=== PATIENT | female | born 1965 | race Caucasian/White ===

== ENCOUNTER 2020-10-12 09:56 | Observation (INO) | payer SELFPAY ==
--- NOTE | 2020-10-12 10:09 | EKG REPORT ---
SEVERITY:- NORMAL ECG - SINUS RHYTHM : Confirmed by: Slim Guzman MD 12-Oct-2020 10:08:55
--- NOTE | 2020-10-12 10:38 | ER Document Report ---
ED Medical Screen (RME) - General Chief Complaint: Chest Pain Stated Complaint: CHEST PAIN,LEFT ARM/SHOULDER PAIN Time Seen by Provider: 10/12/20 10:30 Notes: Patient presents complaining of chest pain off and on for the past 2 days. Patient describes it as an ache at this time that will radiate to the left side of her neck. Patient does report some nausea. Patient denies any cough or cold symptoms. Patient denies any vomiting. Patient has a history of CAD with a stent placed. I have greeted and performed a rapid initial assessment of this patient. A comprehensive ED assessment and evaluation of the patient, analysis of test resu lts and completion of the medical decision making process will be conducted by additional ED providers. Physical Exam - Vital signs Vitals: Temp Pulse Resp BP Pulse Ox 97.7 F 70 20 136/92 H 95 10/12/20 10:04 10/12/20 10:04 10/12/20 10:04 10/12/20 10:04 10/12/20 10:04 - Respiratory Respiratory status: No respiratory distress Chest status: Tender - Cardiovascular Rhythm: Regular Heart sounds: S1 appreciated, S2 appreciated Course - Vital Signs Vital signs: Temp Pulse Resp BP Pulse Ox 97.7 F 70 20 136/92 H 95 10/12/20 10:04 10/12/20 10:04 10/12/20 10:04 10/12/20 10:04 10/12/20 10:04
--- NOTE | 2020-10-12 11:22 | RADIOLOGY REPORT (SQ) ---
EXAM DESCRIPTION: CHEST SINGLE VIEW IMAGES COMPLETED DATE/TIME: 10/12/2020 11:02 am REASON FOR STUDY: cp COMPARISON: None. EXAM PARAMETERS: NUMBER OF VIEWS: One view. TECHNIQUE: Single frontal radiographic view of the chest acquired. RADIATION DOSE: NA LIMITATIONS: None. FINDINGS: LUNGS AND PLEURA: No opacities, masses or pneumothorax. No pleural effusion. MEDIASTINUM AND HILAR STRUCTURES: No masses. Contour normal. HEART AND VASCULAR STRUCTURES: Heart normal in size. Normal vasculature. BONES: No acute findings. HARDWARE: None in the chest. OTHER: No other significant finding. IMPRESSION: NO ACUTE RADIOGRAPHIC FINDING IN THE CHEST. TECHNICAL DOCUMENTATION: JOB ID: [id number] 2010 [employer]- All Rights Reserved Reading location - IP/workstation name: [email or web address]
[2020-10-12 11:23] LABS: ABSOLUTE EOSINOPHILS # (AUTO) 0.1 10^3/uL (0.0-0.6); ABSOLUTE MONOCYTES (AUTO) 0.5 10^3/uL (0.1-1.4); ABSOLUTE NEUT (AUTO) 3.1 10^3/uL (1.7-8.2); BASOPHILS % (AUTO) 0.8 % (0-2); EOSINOPHILS % (AUTO) 2.1 % (0-6); HEMATOCRIT 40.7 % (36.0-47.0); MEAN CORPUSCULAR HGB CONC 34.4 g/dL (32.0-36.0); MEAN CORPUSCULAR VOLUME 81 fl (80-97); PLATELET COUNT 260 10^3/uL (150-450); RED BLOOD COUNT 5.01 10^6/uL (3.72-5.28); RED CELL DISTRIBUTION WIDTH 13.9 % (11.5-14.0); SEGMENTED NEUTROPHILS % (AUTO) 54.1 % (42-78); TOTAL CELLS COUNTED % (AUTO) 100 %; WHITE BLOOD COUNT 5.8 10^3/uL (4.0-10.5)
[2020-10-12 11:41] LABS: ALBUMIN 4.3 g/dL (3.5-5.0); ALKALINE PHOSPHATASE 91 U/L (38-126); ANION GAP 8 (5-19); ASPARTATE AMINO TRANSFERASE 38 U/L (14-36); BILIRUBIN,TOTAL 0.7 mg/dL (0.2-1.3); BLOOD UREA NITROGEN 21 mg/dL (7-20); CALCIUM 9.4 mg/dL (8.4-10.2); CARBON DIOXIDE 27 mmol/L (22-30); CHLORIDE 104 mmol/L (98-107); GLUCOSE 114 mg/dL (75-110); POTASSIUM 4.7 mmol/L (3.6-5.0); TOTAL PROTEIN 7.5 g/dL (6.3-8.2)
--- NOTE | 2020-10-12 11:45 | ER Document Report ---
ED General - General Chief Complaint: Chest Pain Stated Complaint: CHEST PAIN,LEFT ARM/SHOULDER PAIN Time Seen by Provider: 10/12/20 10:30 Notes: 54-year-old female with hypertension hyperlipidemia obesity and prior stenting presents with chest pain. Described as left-sided like someone squeezing, worse when lying on her left side. Started 3 days ago had an episode of about an hour's worth went away alone without any medication. Since then she had intermittent pain as well without shortness of breath diaphoresis or radiation. Right now just feels like someone is putting her finger on her chest. She has had a lot of intermittent nausea in the last few days as well which both accompanies and does not accompany the chest pressure. It does remind her of prior anginal type chest pain but is not exactly the same. Her stent was in [facility] now she lives in [place] and has no doctor or purification operator locally. Denies cough loss of taste or smell fever chills pleuritic component ripping or tearing or radiation to back. Past Medical History - General Information source: Patient - Social History Smoking Status: Unknown if Ever Smoked Family History: None Review of Systems - Review of Systems Notes: REVIEW OF SYSTEMS GEN: Denies fever, chills, weight loss ENT: Denies sore throat, nasal discharge, ear pain EYES: Denies blurry vision, eye pain, discharge CV: Pain RESP: Denies cough, shortness of breath, wheezing GI: Nausea MSK: Denies joint pain/swelling, edema, SKIN: Denies rash, skin lesions LYMPH: Denies swollen glands/lymph nodes NEURO: Denies headache, focal weakness or numbness, dizziness PSYCH: Denies depression, suicidal or homicidal ideation PHYSICAL EXAMINATION General: This, no acute distress, well-nourished Head: Atraumatic, normocephalic ENT: Mouth normal, oropharynx moist, no exudates or tonsillar enlargement Eyes: Conjunctiva normal, pupils equal, lids normal Neck: No JVD, supple, no guarding CVS: Normal rate, regular rhythm, no murmurs Resp: No resp distress, equal and normal breath sounds bilaterally GI: Nondistended, soft, no tenderness to palpation, no rebound or guarding Ext: No deformities, no edema, normal range of motion in upper and lower ext Back: No CVA or midline TTP Skin: No rash, warm Lymphatic: No lymphadeopathy noted Neuro: Awake, alert. Face symmetric. GCS 15. Physical Exam - Vital signs Vitals: Temp Pulse Resp BP Pulse Ox 97.7 F 70 20 136/92 H 95 10/12/20 10:04 10/12/20 10:04 10/12/20 10:04 10/12/20 10:04 10/12/20 10:04 Course - Re-evaluation Re-evalutation: 10/12/20 14:03 Chest pain some typical symmetrical features heart score is 4 history of coronary disease EKG normal Troponin negative Discussed with Dr. Guzman for admission, recommends admission and will stress tomorrow Discussed with hospitalist Dr. Rehana Zamora OSTOMY RN who agreed to admit to telemetry Then rr - Vital Signs Vital signs: Temp Pulse Resp BP Pulse Ox 97.7 F 70 14 102/75 100 10/12/20 10:04 10/12/20 10:04 10/12/20 12:02 10/12/20 12:02 10/12/20 12:02 - Laboratory Results Result Diagrams: 10/12/20 10:25 10/12/20 10:25 Laboratory Results Interpreted: 10/12/20 10:25 BUN 21 H Glucose 114 H AST 38 H Critical Laboratory Results Reviewed: No Critical Results - Radiology Results Critical Radiology Results Reviewed: No Critical Results - EKG Interpretation by Mi EKG shows normal: Sinus rhythm Rate: Normal Rhythm: NSR - No EKG available to compare No ST depression or elevation no T wave changes Discharge - Discharge Clinical Impression: Chest pain, unspecified Qualifiers: Chest pain type: unspecified Qualified Code(s): R07.9 - Chest pain, unspecified Condition: Good Disposition: ADMITTED OBSERVATION Admitting Provider: Martha (Hospitalist) Unit Admitted: Telemetry
--- NOTE | 2020-10-12 16:08 | PDOC CONSULTATION ---
Consultation Consult Date: 10/12/20 Attending physician:: ADORE CLARK Provider Consulted: JULIAN HOOKS Consult reason:: chest pain History of Present Illness Admission Date/PCP: 10/12/20 13:16 Patient complains of: atypical chest pain History of Present Illness: PRIYANKA GUZMAN is a 54 year old female with a past medical history of cardiac cath with stent in 2018 ([facility]), hypertension, hyperlipidemia, morbid obesity, and chronic nausea (has not been worked up) who presented to the emergency department today with complaint of atypical chest pain. She described left-sided chest discomfort that occasionally radiated to her left shoulder. Described as squeezing. She states that the pain lasts minutes to an hour, intermittently occurring a few times daily over the last 3 days. The pain can be provoked by lying on her left side or in prone position. She also occasionally experiences the discomfort when extending her left arm to stretch. She decided upon ED evaluation today as she also experienced a simultaneous episode of nausea, although, her nausea was no worse than her chronic issue. Evaluation in the emergency department was unremarkable with Stable vital signs, normal CBC, benign chemistry, negative troponin x2, EKG demonstrating sinus rhythm, and a benign chest x-ray. Hospitalist service was consulted for further evaluation and management of the above-stated complaints and findings. Past Medical History Cardiac Medical History: Reports: Coronary Artery Disease, Hyperlipidema, Hypertension Pulmonary Medical History: Reports: None EENT Medical History: Reports: None Neurological Medical History: Reports: None Endocrine Medical History: Reports: Obesity Denies: Diabetes Mellitus Type 2, Hypothyroidism Renal/ Medical History: Reports: None Malignancy Medical History: Reports: None GI Medical History: Reports: Gastroesophageal Reflux Disease Musculoskeltal Medical History: Reports: None Psychiatric Medical History: Reports: None Traumatic Medical History: Reports: None Hematology: Reports: None Infectious Medical History: Reports: None Past Surgical History Past Surgical History: Reports: Cardiac Catheterization - stent x1 Social History Information Source: Patient Lives with: Family Smoking Status: Never Smoker Electronic Cigarette use?: No Frequency of Alcohol Use: Rare Hx Recreational Drug Use: No Hx Prescription Drug Abuse: No - Advance Directive Resuscitation Status: Full Code Family History Family History: None, Reviewed & Not Pertinent Parental Family History Reviewed: Yes Children Family History Reviewed: Yes Sibling(s) Family History Reviewed.: Yes Medication/Allergy Home Medications: Amlodipine Besylate [Norvasc 5 mg Tablet] 5 mg PO QHS 10/12/20 Aspirin [Adult Low Dose Aspirin EC] 81 mg PO QHS 10/12/20 Atorvastatin Calcium [Lipitor 80 mg Tablet] 80 mg PO QHS 10/12/20 Icosapent Ethyl [Vascepa] 2 gm PO BID 10/12/20 Metoprolol Succinate [Toprol Xl 50 mg Tab.sr] 50 mg PO QHS 10/12/20 Ondansetron [Zofran Odt 4 mg Tablet] 4 mg PO Q6HP PRN #20 tab 10/12/20 Review of Systems Constitutional: ABSENT: chills, fever(s), headache(s), weight gain, weight loss Eyes: ABSENT: visual disturbances Ears: ABSENT: hearing changes Cardiovascular: PRESENT: as per HPI Respiratory: ABSENT: cough, hemoptysis Gastrointestinal: PRESENT: nausea. ABSENT: abdominal pain, constipation, diarrhea, hematemesis, hematochezia, vomiting Genitourinary: ABSENT: dysuria, hematuria Musculoskeletal: ABSENT: joint swelling Integumentary: ABSENT: rash, wounds Neurological: ABSENT: abnormal gait, abnormal speech, confusion, dizziness, focal weakness, syncope Psychiatric: ABSENT: anxiety, depression, homidical ideation, suicidal ideation Endocrine: ABSENT: cold intolerance, heat intolerance, polydipsia, polyuria Hematologic/Lymphatic: ABSENT: easy bleeding, easy bruising Physical Exam Vital Signs: Temp Pulse Resp BP Pulse Ox 97.7 F 70 14 102/75 100 10/12/20 10:04 10/12/20 10:04 10/12/20 12:02 10/12/20 12:02 10/12/20 12:02 Intake & Output 10/11/20 10/12/20 10/13/20 06:59 06:59 06:59 Weight 134.4 kg General appearance: PRESENT: no acute distress, cooperative, morbidly obese, well-developed, well-nourished Head exam: PRESENT: atraumatic, normocephalic Eye exam: PRESENT: conjunctiva pink, EOMI, PERRLA. ABSENT: scleral icterus Mouth exam: PRESENT: moist, tongue midline Neck exam: ABSENT: carotid bruit, JVD, lymphadenopathy, thyromegaly Respiratory exam: PRESENT: clear to auscultation nell, symmetrical, unlabored, ot her - room air. ABSENT: rales, rhonchi, wheezes Cardiovascular exam: PRESENT: RRR. ABSENT: diastolic murmur, rubs, systolic murmur Pulses: PRESENT: normal dorsalis pedis pul Vascular exam: PRESENT: normal capillary refill GI/Abdominal exam: PRESENT: normal bowel sounds, soft. ABSENT: distended, g uarding, mass, organolmegaly, rebound, tenderness Rectal exam: PRESENT: deferred Extremities exam: PRESENT: full ROM. ABSENT: calf tenderness, clubbing, pedal edema Neurological exam: PRESENT: alert, awake, oriented to person, oriented to place, oriented to time, oriented to situation, CN II-XII grossly intact. ABSENT: mo tor sensory deficit Psychiatric exam: PRESENT: appropriate affect, normal mood. ABSENT: homicidal ideation, suicidal ideation Skin exam: PRESENT: dry, intact, warm. ABSENT: cyanosis, rash Results Laboratory Results: 10/12/20 10:25 10/12/20 10:25 10/12/20 10/12/20 10:25 10:25 WBC 5.8 RBC 5.01 Hgb 14.0 Hct 40.7 MCV 81 MCH 28.0 MCHC 34.4 RDW 13.9 Plt Count 260 Seg Neutrophils % 54.1 Sodium 139.3 Potassium 4.7 Chloride 104 Carbon Dioxide 27 Anion Gap 8 BUN 21 H Creatinine 0.73 Est GFR ( Amer) > 60 Glucose 114 H Calcium 9.4 Magnesium 1.9 Total Bilirubin 0.7 AST 38 H Alkaline Phosphatase 91 Total Protein 7.5 Albumin 4.3 10/12/20 10/12/20 10:25 14:40 Troponin I < 0.012 < 0.012 Impressions: Chest X-Ray 10/12/20 10:37 IMPRESSION: NO ACUTE RADIOGRAPHIC FINDING IN THE CHEST. Assessment and Plan - Diagnosis (1) Chest pain, unspecified Qualifiers: Chest pain type: unspecified Qualified Code(s): R07.9 - Chest pain, unspecified Is this a current diagnosis for this admission?: Yes Plan: Patient presents with atypical chest pain; reproducible with palpation, prone positioning, and movement of her left arm and shoulder. EKG shows normal sinus rhythm. Troponin negative x2. Chest x-ray benign. Discussed with cardiology. As the patient has ruled out with atypical chest pain, 2 negative troponins, and normal EKG, she is appropriate for outpatient follow-up and further evaluation. This was discussed with the patient who readily agreed to discharge with outpatient follow-up. She is instructed to continue her home medication regiment of aspirin, statin, amlodipine, and Toprol. She is further encouraged to return to the emergency department, immediately, as needed for concerning symptoms. (2) Chronic nausea Is this a current diagnosis for this admission?: Yes Plan: Patient is encouraged to establish PCP and to seek GI consultation. We discussed that her chest discomfort today could in fact be related to a chronic GI issue (esophageal spasms, uncontrolled GERD/reflux). She is provided prescription for Zofran which she states has worked very well for her in the past. She is offered prescription for Prilosec; patient states that she prefers to use [id number] products. - Time Time Spent with patient: 35 or more minutes Anticipated Discharge Disposition: Home, Self Care Anticipated Discharge Timeframe: Now
[2020-10-12 16:15] VITALS: BP 95/52
== END 2020-10-12 16:40 | disposition home or self-care (01) ==
LOC: ER 09:56 → EH 13:16
PROVIDERS: ADMIT Hospitalist; ATTEND Hospitalist
DX: R07.89 Other chest pain (principal); R11.0 Nausea; I10 Essential (primary) hypertension; E78.5 Hyperlipidemia, unspecified; E66.01 Morbid (severe) obesity due to excess calories; K21.9 Gastro-esophageal reflux disease without esophagitis; I25.10 Atherosclerotic heart disease of native coronary artery without angina pectoris; Z95.5 Presence of coronary angioplasty implant and graft; Z79.899 Other long term (current) drug therapy; Z79.82 Long term (current) use of aspirin
CPT/HCPCS: 36415; 71045; 80053; 83735; 84484; 85025; 93005; 93010; 99285